=== PATIENT | male | born 1950 | race Caucasian/White ===

== ENCOUNTER 2018-01-29 05:23 | Emergency (ER) | payer OTHER, BC ==
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
[2018-01-29 06:57] VITALS: BP 185/95; PULSE 71; RESP 17; TEMP 98
== END 2018-01-29 06:57 | disposition home or self-care (01) ==
LOC: EC 05:23
DX: S60.222A Contusion of left hand, initial encounter (principal); I10 Essential (primary) hypertension; M25.512 Pain in left shoulder; Z87.891 Personal history of nicotine dependence; Z79.899 Other long term (current) drug therapy; Z91.018 Allergy to other foods; V43.52XA Car driver injured in collision with other type car in traffic accident, initial encounter; Y92.410 Unspecified street and highway as the place of occurrence of the external cause
CPT/HCPCS: 99284

== ENCOUNTER → 2018-05-27 | Outpatient (CLI) | payer BC ==
--- NOTE | 2018-05-27 15:35 | XR ---
EXAMINATION TYPE: XR chest 2V DATE OF EXAM: 05/27/2018 COMPARISON: None INDICATION: Follow-up pneumonia TECHNIQUE: Frontal and lateral views of the chest are obtained. FINDINGS: The heart size is normal. The pulmonary vasculature is normal. The lungs are clear. IMPRESSION: 1. No acute pulmonary process.
== END | disposition home or self-care (01) ==
LOC: RADXRMAIN 15:12
PROVIDERS: ATTEND Internal Medicine
DX: J18.9 Pneumonia, unspecified organism (principal)
CPT/HCPCS: 71046

== ENCOUNTER → 2023-11-29 | Outpatient (CLI) | payer MEDICARE ==
--- NOTE | 2023-11-29 17:48 | CA ---
Exercise Stress Test Report Name: Juanjose Arreola Exam Date: 11/29/2023 11:17 Exam Location: [facility] [place] Stress Ht (in): 75 Wt (lb): 264 BSA: 2.47 Ordering Phys: Guido Leonard MD Referring Phys: Guido Leonard MD Technologist: KAELYN ELLSWORTH Age: 73 Gender: M : 1950 Procedure CPT: Indications: R94.31 ABNORMAL EKG ICD-10 Codes: Patient History: Medications: VENTOLIN, AMPLODIPINE, LOSARTAN Meds past 24 hrs: Pretest Chest Pain: STRESS TEST Lucas Protocol Exercise Duration (min:sec): 02:[address] Depressions (mm): Angina Score: Weems Score: Resting HR (bpm): 80 Peak HR (bpm): 118 Resting BP (mmHg): 146 / 71 Peak BP (mmHg): 214 / 77 MPHR: 149 Target HR: 127 % MPHR: 79 METS: 3.2 Total Dose: Peak Dose: Atropine: Double Product: 97801 BP Response: Stress Termination: PATIENT ASKED TO STOP CHEST PRESSURE FROM SHORTNESS OF BREATH Stress Symptoms: CHEST PRESSURE FROM SHORTNESS OF BREATH Stress Summary: ECG ANALYSIS Resting ECG: Normal sinus rhythm with right bundle branch block Stress ECG: Patient exercised on Lucas protocol for 2 minutes achieving 79% of predicted maximal heart rate without diagnostic ST segment depression test was stopped secondary to shortness of breath and chest discomfort CONCLUSIONS Extremely poor exercise tolerance Inconclusive EKG part of the stress test due to baseline EKG abnormalities and inability to attain target heart rate Suggest referral to a fuller brush man Dr. Donny Rodriguez MD (Electronically Signed) Final Date: 29 November 2023 17:47
== END | disposition home or self-care (01) ==
LOC: RADNMMAIN 10:52
PROVIDERS: ATTEND Family Medicine
DX: R94.31 Abnormal electrocardiogram [ECG] [EKG] (principal)
CPT/HCPCS: 93017